=== PATIENT | male | born 1940 | race Caucasian/White ===

== ENCOUNTER 2016-09-27 13:40 | Emergency (ER) | payer MEDICARE, OTHER ==
[2016-09-27 14:38] LABS: BASO % 0.2 % (0-2); EOS % 3.3 % (0-7); EOSINOPHIL ABSOLUTE COUNT 0.2 tho/cmm (0.0-0.7); HCT-HEMATOCRIT 38.1 % (36.0-53.5); HGB-HEMOGLOBIN 12.9 gm/dl (13.5-17.0); IMMATURE GRANULOCYTES ABSOLUTE 0.01 tho/cmm (0-0.03); IMMATURE GRANULOCYTES PERCENT 0.2 % (0-0.3); LYMPH % 16.3 % (20-45); MCH (MEAN CORPUSCULAR HGB) 31.5 pg (28.0-32.0); MCHC MEAN CORPUSCULAR HGB CONC 33.9 % (32.0-36.0); MCV (MEAN CELL VOLUME) 92.9 fl (82.0-96.0); MEAN PLATELET VOLUME 9.3 cmc (9.4-12.4); MONO % 10.2 % (0-12); MONOCYTE ABSOLUTE COUNT 0.6 tho/cmm (0.0-1.2); NEUTROPHIL ABSOLUTE COUNT 4.3 tho/cmm (1.6-8.0); NEUTROPHIL-AUTOMATED 4.3 tho/cmm (1.6-8.0); NEUTROPHILS % 69.8 % (40-80); PLATELET COUNT 281 tho/cmm (150-450); RED CELL DISTRIBUTION WIDTH 13.1 % (12.4-16.4); WHITE BLOOD COUNT 6.1 tho/cmm (4.0-10.0)
[2016-09-27 14:52] LABS: ANION GAP 10 mmol/L (0-20); BLOOD UREA NITROGEN 24 mg/dl (6-24); CALCIUM 8.8 mg/dl (8.5-10.5); CARBON DIOXIDE-VENOUS 26 mmol/L (22-32); CHLORIDE 111 mmol/l (96-110); GLUCOSE 199 mg/dL (70-110); SODIUM 142 mmol/L (135-145); eGFR VALUE FOR BLACK 62 mL/Min
[2016-09-27] MEDS ORDERED: COREG25 M1 PO (15:02)
[2016-09-27] MEDS ORDERED: PRINIVIL10 M1 PO (15:03)
[2016-09-27] MEDS ORDERED: ASPIRIN EC81 MG PO (15:03)
[2016-09-27] MEDS ORDERED: TRICOR (15:03)
[2016-09-27] MEDS ORDERED: ATORVASTATIN (15:03)
[2016-09-27] MEDS ORDERED: VICTOZA 2-0.6 MG/0.1 SC (15:03)
[2016-09-27] MEDS ORDERED: GLUCOPHAGE500 M3 PO (15:03)
[2016-09-27] MEDS ORDERED: ZITHROMAX250 M1 PO (15:25)
== END 2016-09-27 15:37 ==
LOC: EDMED 13:40
PROVIDERS: Emergency Medicine
PROC: 0HQ0XZZ Repair Scalp Skin, External Approach (ICD-10-PCS; principal; 2016-09-27)
DX: S01.01XA Laceration without foreign body of scalp, initial encounter (principal); S13.4XXA Sprain of ligaments of cervical spine, initial encounter; S16.1XXA Strain of muscle, fascia and tendon at neck level, initial encounter; E04.1 Nontoxic single thyroid nodule; J32.9 Chronic sinusitis, unspecified; I10 Essential (primary) hypertension; E11.9 Type 2 diabetes mellitus without complications; W22.8XXA Striking against or struck by other objects, initial encounter; Y93.67 Activity, basketball; Y92.009 Unspecified place in unspecified non-institutional (private) residence as the place of occurrence of the external cause